=== PATIENT | male | born 1950 | race Caucasian/White ===

== ENCOUNTER → 2018-03-21 | Outpatient (CLI) | payer OTHER | LOC: HYPER 02-28 12:06 | DX: T81.89XA Other complications of procedures, not elsewhere classified, initial encounter (principal); E78.5 Hyperlipidemia, unspecified; M34.9 Systemic sclerosis, unspecified; M25.522 Pain in left elbow; M70.21 Olecranon bursitis, right elbow; K21.9 Gastro-esophageal reflux disease without esophagitis; F41.9 Anxiety disorder, unspecified; F32.9 Major depressive disorder, single episode, unspecified; Z87.891 Personal history of nicotine dependence; Z85.828 Personal history of other malignant neoplasm of skin; Y92.89 Other specified places as the place of occurrence of the external cause; Y83.8 Other surgical procedures as the cause of abnormal reaction of the patient, or of later complication, without mention of misadventure at the time of the procedure ==

== ENCOUNTER → 2018-04-04 | Outpatient (CLI) | payer OTHER | LOC: HYPER 06:57 | DX: T81.89XD Other complications of procedures, not elsewhere classified, subsequent encounter (principal); E78.5 Hyperlipidemia, unspecified; E07.89 Other specified disorders of thyroid; I73.00 Raynaud's syndrome without gangrene; K21.9 Gastro-esophageal reflux disease without esophagitis; M34.9 Systemic sclerosis, unspecified; M70.21 Olecranon bursitis, right elbow; F41.9 Anxiety disorder, unspecified; F32.9 Major depressive disorder, single episode, unspecified; Z85.89 Personal history of malignant neoplasm of other organs and systems; Z87.891 Personal history of nicotine dependence; Z89.411 Acquired absence of right great toe; Y83.8 Other surgical procedures as the cause of abnormal reaction of the patient, or of later complication, without mention of misadventure at the time of the procedure ==

== ENCOUNTER → 2018-04-18 | Outpatient (CLI) | payer OTHER | LOC: HYPER 07:38 | DX: T81.89XD Other complications of procedures, not elsewhere classified, subsequent encounter (principal); E78.5 Hyperlipidemia, unspecified; E07.89 Other specified disorders of thyroid; I73.00 Raynaud's syndrome without gangrene; K21.9 Gastro-esophageal reflux disease without esophagitis; M34.9 Systemic sclerosis, unspecified; M70.21 Olecranon bursitis, right elbow; F41.9 Anxiety disorder, unspecified; F32.9 Major depressive disorder, single episode, unspecified; Z85.89 Personal history of malignant neoplasm of other organs and systems; Z87.891 Personal history of nicotine dependence; Z89.411 Acquired absence of right great toe; Y83.8 Other surgical procedures as the cause of abnormal reaction of the patient, or of later complication, without mention of misadventure at the time of the procedure ==

== ENCOUNTER → 2018-05-03 | Outpatient (CLI) | payer OTHER | LOC: HYPER 06:58 | DX: T81.89XD Other complications of procedures, not elsewhere classified, subsequent encounter (principal); E78.5 Hyperlipidemia, unspecified; E07.89 Other specified disorders of thyroid; I73.00 Raynaud's syndrome without gangrene; K21.9 Gastro-esophageal reflux disease without esophagitis; M34.9 Systemic sclerosis, unspecified; M70.21 Olecranon bursitis, right elbow; F41.9 Anxiety disorder, unspecified; F32.9 Major depressive disorder, single episode, unspecified; Z87.891 Personal history of nicotine dependence; Z89.411 Acquired absence of right great toe; Z85.89 Personal history of malignant neoplasm of other organs and systems; Y83.8 Other surgical procedures as the cause of abnormal reaction of the patient, or of later complication, without mention of misadventure at the time of the procedure ==

== ENCOUNTER → 2018-05-23 | Outpatient (CLI) | payer OTHER | LOC: HYPER 06:52 | DX: T81.89XD Other complications of procedures, not elsewhere classified, subsequent encounter (principal); E78.5 Hyperlipidemia, unspecified; M34.9 Systemic sclerosis, unspecified; M70.21 Olecranon bursitis, right elbow; M25.522 Pain in left elbow; K21.9 Gastro-esophageal reflux disease without esophagitis; F32.9 Major depressive disorder, single episode, unspecified; F41.9 Anxiety disorder, unspecified; Z85.828 Personal history of other malignant neoplasm of skin; Z89.411 Acquired absence of right great toe; Z87.891 Personal history of nicotine dependence; Y83.8 Other surgical procedures as the cause of abnormal reaction of the patient, or of later complication, without mention of misadventure at the time of the procedure ==

== ENCOUNTER → 2018-06-13 | Outpatient (CLI) | payer OTHER | LOC: HYPER 06:48 | DX: T81.89XD Other complications of procedures, not elsewhere classified, subsequent encounter (principal); E07.89 Other specified disorders of thyroid; E78.5 Hyperlipidemia, unspecified; I73.00 Raynaud's syndrome without gangrene; K21.9 Gastro-esophageal reflux disease without esophagitis; M70.21 Olecranon bursitis, right elbow; M34.9 Systemic sclerosis, unspecified; M25.522 Pain in left elbow; F41.9 Anxiety disorder, unspecified; F32.9 Major depressive disorder, single episode, unspecified; Z87.891 Personal history of nicotine dependence; Z89.411 Acquired absence of right great toe; Z85.89 Personal history of malignant neoplasm of other organs and systems; Y83.8 Other surgical procedures as the cause of abnormal reaction of the patient, or of later complication, without mention of misadventure at the time of the procedure ==

== ENCOUNTER → 2018-07-05 | Outpatient (CLI) | payer OTHER | LOC: HYPER 07:04 | DX: T81.89XD Other complications of procedures, not elsewhere classified, subsequent encounter (principal); M25.522 Pain in left elbow; M34.9 Systemic sclerosis, unspecified; E78.5 Hyperlipidemia, unspecified; K21.9 Gastro-esophageal reflux disease without esophagitis; M70.21 Olecranon bursitis, right elbow; F32.9 Major depressive disorder, single episode, unspecified; F41.9 Anxiety disorder, unspecified; Z89.411 Acquired absence of right great toe; Z85.828 Personal history of other malignant neoplasm of skin; Z87.891 Personal history of nicotine dependence; Y83.8 Other surgical procedures as the cause of abnormal reaction of the patient, or of later complication, without mention of misadventure at the time of the procedure ==

== ENCOUNTER → 2018-08-07 | Outpatient (CLI) | payer OTHER | LOC: HYPER 08-02 06:49 | DX: T81.89XD Other complications of procedures, not elsewhere classified, subsequent encounter (principal); M34.9 Systemic sclerosis, unspecified; E78.5 Hyperlipidemia, unspecified; M25.522 Pain in left elbow; M70.21 Olecranon bursitis, right elbow; K21.9 Gastro-esophageal reflux disease without esophagitis; F32.9 Major depressive disorder, single episode, unspecified; F41.9 Anxiety disorder, unspecified; Z85.828 Personal history of other malignant neoplasm of skin; Z89.411 Acquired absence of right great toe; Z87.891 Personal history of nicotine dependence; Y83.8 Other surgical procedures as the cause of abnormal reaction of the patient, or of later complication, without mention of misadventure at the time of the procedure ==

== ENCOUNTER → 2019-08-01 | Outpatient (CLI) | payer OTHER | LOC: HYPER 10:41 → RAD 12:27 | DX: S51.001A Unspecified open wound of right elbow, initial encounter (principal); M70.21 Olecranon bursitis, right elbow; M34.9 Systemic sclerosis, unspecified; K21.9 Gastro-esophageal reflux disease without esophagitis; I73.00 Raynaud's syndrome without gangrene; E78.5 Hyperlipidemia, unspecified; E07.89 Other specified disorders of thyroid; F32.9 Major depressive disorder, single episode, unspecified; F41.9 Anxiety disorder, unspecified; Z85.89 Personal history of malignant neoplasm of other organs and systems; Z89.411 Acquired absence of right great toe; Z95.0 Presence of cardiac pacemaker; Z87.891 Personal history of nicotine dependence; X58.XXXA Exposure to other specified factors, initial encounter; Y93.89 Activity, other specified; Y92.89 Other specified places as the place of occurrence of the external cause; Y99.8 Other external cause status ==

== ENCOUNTER → 2019-08-15 | Outpatient (CLI) | payer OTHER | LOC: HYPER 13:06 | DX: S51.001D Unspecified open wound of right elbow, subsequent encounter (principal); E78.5 Hyperlipidemia, unspecified; E07.89 Other specified disorders of thyroid; I73.00 Raynaud's syndrome without gangrene; K21.9 Gastro-esophageal reflux disease without esophagitis; M34.9 Systemic sclerosis, unspecified; M70.21 Olecranon bursitis, right elbow; F41.9 Anxiety disorder, unspecified; F32.9 Major depressive disorder, single episode, unspecified; Z87.891 Personal history of nicotine dependence; Z89.411 Acquired absence of right great toe; Z85.89 Personal history of malignant neoplasm of other organs and systems; X58.XXXD Exposure to other specified factors, subsequent encounter ==

== ENCOUNTER → 2019-08-29 | Outpatient (CLI) | payer OTHER | LOC: HYPER 12:56 | PROVIDERS: ATTEND Emergency Medicine | DX: S51.001D Unspecified open wound of right elbow, subsequent encounter (principal); M34.9 Systemic sclerosis, unspecified; M70.21 Olecranon bursitis, right elbow; K21.9 Gastro-esophageal reflux disease without esophagitis; E78.5 Hyperlipidemia, unspecified; I73.00 Raynaud's syndrome without gangrene; E07.9 Disorder of thyroid, unspecified; F32.9 Major depressive disorder, single episode, unspecified; F41.9 Anxiety disorder, unspecified; Z85.89 Personal history of malignant neoplasm of other organs and systems; Z89.411 Acquired absence of right great toe; Z87.891 Personal history of nicotine dependence; Z79.82 Long term (current) use of aspirin; X58.XXXD Exposure to other specified factors, subsequent encounter ==

== ENCOUNTER → 2019-09-30 | Outpatient (CLI) | payer OTHER | LOC: HYPER 10:50 | PROVIDERS: ATTEND Emergency Medicine | DX: T81.89XD Other complications of procedures, not elsewhere classified, subsequent encounter (principal); S51.001D Unspecified open wound of right elbow, subsequent encounter; L94.2 Calcinosis cutis; E78.5 Hyperlipidemia, unspecified; E07.89 Other specified disorders of thyroid; I73.00 Raynaud's syndrome without gangrene; K21.9 Gastro-esophageal reflux disease without esophagitis; M70.21 Olecranon bursitis, right elbow; F41.9 Anxiety disorder, unspecified; Z48.89 Encounter for other specified surgical aftercare; Z87.891 Personal history of nicotine dependence; Z89.411 Acquired absence of right great toe; Z85.89 Personal history of malignant neoplasm of other organs and systems; F32.9 Major depressive disorder, single episode, unspecified; Y83.8 Other surgical procedures as the cause of abnormal reaction of the patient, or of later complication, without mention of misadventure at the time of the procedure ==

== ENCOUNTER → 2019-10-08 | Outpatient (CLI) | payer OTHER | LOC: HYPER 13:02 | PROVIDERS: ATTEND Emergency Medicine | DX: T81.89XD Other complications of procedures, not elsewhere classified, subsequent encounter (principal); S51.001D Unspecified open wound of right elbow, subsequent encounter; M34.9 Systemic sclerosis, unspecified; M70.21 Olecranon bursitis, right elbow; K21.9 Gastro-esophageal reflux disease without esophagitis; E78.5 Hyperlipidemia, unspecified; I73.00 Raynaud's syndrome without gangrene; F32.9 Major depressive disorder, single episode, unspecified; F41.9 Anxiety disorder, unspecified; Z85.89 Personal history of malignant neoplasm of other organs and systems; Z87.891 Personal history of nicotine dependence; Z79.82 Long term (current) use of aspirin; Z89.411 Acquired absence of right great toe; Y83.8 Other surgical procedures as the cause of abnormal reaction of the patient, or of later complication, without mention of misadventure at the time of the procedure; X58.XXXD Exposure to other specified factors, subsequent encounter ==

== ENCOUNTER → 2019-10-16 | Outpatient (CLI) | payer OTHER | LOC: HYPER 08:54 | PROVIDERS: ATTEND Emergency Medicine | DX: T81.89XD Other complications of procedures, not elsewhere classified, subsequent encounter (principal); S51.001D Unspecified open wound of right elbow, subsequent encounter; M34.9 Systemic sclerosis, unspecified; M70.21 Olecranon bursitis, right elbow; K21.9 Gastro-esophageal reflux disease without esophagitis; I73.00 Raynaud's syndrome without gangrene; F32.9 Major depressive disorder, single episode, unspecified; F41.9 Anxiety disorder, unspecified; Z85.89 Personal history of malignant neoplasm of other organs and systems; Z89.411 Acquired absence of right great toe; Z87.891 Personal history of nicotine dependence; Z79.82 Long term (current) use of aspirin; Y83.8 Other surgical procedures as the cause of abnormal reaction of the patient, or of later complication, without mention of misadventure at the time of the procedure; X58.XXXD Exposure to other specified factors, subsequent encounter ==

== ENCOUNTER → 2019-10-30 | Outpatient (CLI) | payer OTHER | LOC: HYPER 09:00 | PROVIDERS: ATTEND Emergency Medicine | DX: T81.89XD Other complications of procedures, not elsewhere classified, subsequent encounter (principal); S51.001D Unspecified open wound of right elbow, subsequent encounter; L94.2 Calcinosis cutis; E78.5 Hyperlipidemia, unspecified; E07.89 Other specified disorders of thyroid; I73.00 Raynaud's syndrome without gangrene; K21.9 Gastro-esophageal reflux disease without esophagitis; M70.21 Olecranon bursitis, right elbow; F41.9 Anxiety disorder, unspecified; F32.9 Major depressive disorder, single episode, unspecified; Z85.9 Personal history of malignant neoplasm, unspecified; Z48.89 Encounter for other specified surgical aftercare; Z87.891 Personal history of nicotine dependence; Z89.411 Acquired absence of right great toe; Y83.8 Other surgical procedures as the cause of abnormal reaction of the patient, or of later complication, without mention of misadventure at the time of the procedure ==

== ENCOUNTER → 2019-12-03 | Outpatient (CLI) | payer OTHER | LOC: HYPER 09:36 | PROVIDERS: ATTEND Emergency Medicine | DX: T81.89XD Other complications of procedures, not elsewhere classified, subsequent encounter (principal); S51.001D Unspecified open wound of right elbow, subsequent encounter; L94.2 Calcinosis cutis; E78.5 Hyperlipidemia, unspecified; E07.89 Other specified disorders of thyroid; I73.00 Raynaud's syndrome without gangrene; K21.9 Gastro-esophageal reflux disease without esophagitis; M70.21 Olecranon bursitis, right elbow; F41.9 Anxiety disorder, unspecified; F32.9 Major depressive disorder, single episode, unspecified; Z85.89 Personal history of malignant neoplasm of other organs and systems; Z48.89 Encounter for other specified surgical aftercare; Z87.891 Personal history of nicotine dependence; Z89.411 Acquired absence of right great toe; X58.XXXD Exposure to other specified factors, subsequent encounter ==